=== PATIENT | female | born 1970 | race African-American/Black ===

== ENCOUNTER 2020-09-09 06:44 | Outpatient (REF) | payer OTHER, SELFPAY | END 2020-09-09 06:45 | disposition home or self-care (01) | LOC: HO.LAB 06:44 | PROVIDERS: PCP Internal Medicine; Visit Provider Internal Medicine | DX: Z20.828 Contact with and (suspected) exposure to other viral communicable diseases (principal) | CPT/HCPCS: C9803; U0003 ==

== ENCOUNTER 2020-09-18 15:36 | Outpatient (REF) | payer OTHER, SELFPAY | END 2020-09-18 15:37 | disposition home or self-care (01) | LOC: HO.LAB 15:36 | PROVIDERS: PCP Internal Medicine; Visit Provider Internal Medicine | DX: Z20.828 Contact with and (suspected) exposure to other viral communicable diseases (principal) | CPT/HCPCS: C9803; U0003 ==

== ENCOUNTER 2021-09-02 10:44 | Outpatient (REF) | payer OTHER, SELFPAY | END 2021-09-02 10:45 | disposition home or self-care (01) | LOC: HO.LAB 10:44 | PROVIDERS: Visit Provider Internal Medicine | DX: Z20.822 Contact with and (suspected) exposure to COVID-19 (principal) | CPT/HCPCS: C9803; U0003; U0005 ==